=== PATIENT | female | born 1975 | race Caucasian/White ===

== ENCOUNTER 2024-06-24 19:49 | Emergency (ER) | payer OTHER ==
[2024-06-24 19:56] VITALS: RESP 18; TEMP 98.2; BMI 33.5
[2024-06-24] MEDS ORDERED: ONDANSETRON *ODT* 4 MG TABLET ONE (21:21)
[2024-06-24] MEDS ORDERED: METOCLOPRAMIDE HCL 10 MG TABLET (FP) PO ONE (21:21)
[2024-06-24] MEDS ORDERED: ACETAMINOPHEN INJECTION 100 ML IVPB ONE (21:22)
[2024-06-24] MEDS: ONDANSETRON 4 MG TABLET PO ONE (21:40)
[2024-06-24] MEDS: ACETAMINOPHEN 1000 MG/100 ML BAG IVPB ONE (21:45)
[2024-06-24] MEDS: METOCLOPRAMIDE HCL 10 MG TABLET (FP) PO ONE (21:49)
[2024-06-24] MEDS: SODIUM CHLORIDE 0.9% 500 ML INFUS.BAG IV ONE (21:49)
[2024-06-24 21:54] LABS: BASO % 1.1 % (0-2.0); HEMATOCRIT 39.7 % (32.4-45.2); HEMOGLOBIN 13.2 GM/dL (10.7-15.3); MCH 30.5 pg (25.7-33.7); MCHC 33.2 g/dl (32.0-36.0); MEAN CELL VOLUME 91.6 fl (80-96); MEAN PLT VOLUME 8.8 fl (7.5-11.1); MONO % 5.1 % (3.8-10.2); NEUT % 60.8 % (42.8-82.8); PLATELET COUNT 273 10^3/uL (134-434); RBC 4.33 M/mm3 (3.60-5.2); RDW 15.1 % (11.6-15.6); WHITE BLOOD COUNT 8.8 K/mm3 (4.0-10.0)
[2024-06-24 22:17] LABS: POTASSIUM 3.8 mmol/L (3.5-5.1)
[2024-06-24 22:19] LABS: ALBUMIN 3.7 g/dl (3.4-5.0); BLOOD UREA NITROGEN 17.2 mg/dL (7-18)
[2024-06-24 22:23] LABS: CREATININE 0.7 mg/dL (0.55-1.3)
[2024-06-24 22:24] LABS: BILIRUBIN,TOTAL 0.1 mg/dL (0.2-1); TOT PROT 7.3 g/dl (6.4-8.2)
[2024-06-24] MEDS: VALSARTAN 40 MG TABLET PO ONE (22:24)
[2024-06-24 23:09] VITALS: BP 149/88; PULSE 68
[2024-06-25] MEDS ORDERED: SUMATRIPTAN SUCCINATE 6 MG/0.5 ML VIAL ONE (00:01)
[2024-06-25] MEDS: SUMATRIPTAN SUCCINATE 6 MG/0.5 ML VIAL SQ ONE (00:05)
== END 2024-06-25 00:46 | disposition home or self-care (01) ==
LOC: JER 19:49
PROC: 3E033NZ Introduction of Analgesics, Hypnotics, Sedatives into Peripheral Vein, Percutaneous Approach (ICD-10-PCS; principal; 2024-06-24)
DX: R51.9 Headache, unspecified (principal); R11.0 Nausea; I10 Essential (primary) hypertension; Z20.822 Contact with and (suspected) exposure to COVID-19
CPT/HCPCS: 0241U-QW; 36415; 70450-TC; 80053; 84484; 85025; 93005; 93010; 99285-25; J0131